=== PATIENT | female | born 1950 | race Two or more races ===

== ENCOUNTER → 2019-06-05 | Outpatient (CLI) | payer OTHER | END | disposition home or self-care (01) | LOC: NUCLEAR 05-27 07:00 | DX: I20.8 Other forms of angina pectoris (principal); I11.9 Hypertensive heart disease without heart failure; I25.10 Atherosclerotic heart disease of native coronary artery without angina pectoris; I25.2 Old myocardial infarction; E78.2 Mixed hyperlipidemia | CPT/HCPCS: A9500; 93017; 78452 ==

== ENCOUNTER 2023-12-16 07:09 | Outpatient (CLI) | payer OTHER | END 2023-12-16 07:10 | disposition home or self-care (01) | LOC: NUCLEAR 07:09 | PROVIDERS: ATTEND Internal Medicine Cardiovascular Disease | DX: I20.9 Angina pectoris, unspecified (principal); I70.0 Atherosclerosis of aorta; I11.9 Hypertensive heart disease without heart failure; E78.2 Mixed hyperlipidemia | CPT/HCPCS: 78452; 93017; A9500 ==